=== PATIENT | female | born 1940 | race Caucasian/White ===

== ENCOUNTER 2017-01-20 14:21 | Emergency (ER) | payer MEDICARE | END 2017-01-20 15:46 | disposition home or self-care (01) | LOC: FER 14:21 | DX: M77.32 Calcaneal spur, left foot (principal); M77.31 Calcaneal spur, right foot; I10 Essential (primary) hypertension | CPT/HCPCS: 73610; 99283 ==

== ENCOUNTER 2017-01-23 17:45 | Emergency (ER) | payer MEDICARE, OTHER | END 2017-01-23 19:58 | disposition home or self-care (01) | LOC: FER 17:45 | DX: M19.072 Primary osteoarthritis, left ankle and foot (principal); M19.071 Primary osteoarthritis, right ankle and foot; I87.2 Venous insufficiency (chronic) (peripheral); F41.9 Anxiety disorder, unspecified; I10 Essential (primary) hypertension; Z79.899 Other long term (current) drug therapy | CPT/HCPCS: 99283 ==